=== PATIENT | female | born 1985 | race American Indian/Alaskan Native ===

== ENCOUNTER 2018-10-31 19:12 | Emergency (ER) | payer OTHER ==
[2018-10-31 19:24] VITALS: BMI 22.8
[2018-10-31] MEDS ORDERED: Sodium Chloride 0.9% 1,000 ML IV STA (19:39)
--- NOTE | 2018-10-31 19:44 | ED PDOC ---
Arrival/HPI - General Chief Complaint: Palpitations Time Seen by Provider: 10/31/18 19:26 - History of Present Illness Narrative History of Present Illness (Text): 10/31/18 19:40 33 yo female, presents with vomiting, chills, cough since sun. states on sun had chills mild headache, which resolved, subjective fever. started having vomiting the following day. no abd pain no sore throat, has a cough. no sick contacts saw pmmd in office sent to emergency room for eval. Past Medical History - Infectious Disease Hx of Infectious Diseases: None - Reproductive Currently : Unknown - Psychiatric Hx Substance Use: No - Surgical History Hx Section: Yes (x1) - Anesthesia Hx Anesthesia: Yes Hx Anesthesia Reactions: No Hx Malignant Hyperthermia: No Family/Social History Family/Social History: Unknown Family HX Smoking Status: Never Smoked Hx Alcohol Use: No Hx Substance Use: No Allergies/Home Meds Allergies/Adverse Reactions: Allergies No Known Allergies Allergy (Verified 10/31/18 19:24) Home Medications: Home Meds Medication Instructions Recorded Confirmed RX: No Known Home Med 10/31/18 10/31/18 Review of Systems - Review of Systems Constitutional: Fevers (subjective) Eyes: Normal ENT: Normal Respiratory: Cough Cardiovascular: Normal Gastrointestinal: Nausea, Vomiting Genitourinary Female: Normal Musculoskeletal: Normal Skin: Normal Neurological: Headache Endocrine: Normal Hemo/Lymphatic: Normal Psychiatric: Normal Physical Exam Temperature: Afebrile Blood Pressure: Normal Pulse: Regular Respiratory Rate: Normal Appearance: Positive for: Well-Appearing, Non-Toxic, Comfortable Pain Distress: None Mental Status: Positive for: Alert and Oriented X 3 - Systems Exam Head: Present: Atraumatic, Normocephalic Pupils: Present: PERRL Extroacular Muscles: Present: EOMI Conjunctiva: Present: Normal Mouth: Present: Moist Mucous Membranes Neck: Present: Normal Range of Motion Respiratory/Chest: Present: Clear to Auscultation, Good Air Exchange. No: Respiratory Distress, Accessory Muscle Use Cardiovascular: Present: Regular Rate and Rhythm, Normal S1, S2. No: Murmurs Abdomen: No: Tenderness, Distention, Peritoneal Signs, Rebound, Guarding Back: Present: Normal Inspection Upper Extremity: Present: Normal Inspection. No: Cyanosis, Edema Lower Extremity: Present: Normal Inspection. No: Edema Neurological: Present: GCS=15, CN II-XII Intact, Speech Normal Skin: Present: Warm, Dry, Normal Color. No: Rashes Psychiatric: Present: Alert, Oriented x 3, Normal Insight, Normal Concentration Medical Decision Making ED Course and Treatment: supect viral syndrome gastro dehydration. - labs hydration zofran reassess 10/31/18 19:43 ro dehydrtation viral syndrome influenza. - labs hydration antiemeteric reaccess. ekg nsr [address] t wave changes 10/31/18 22:39 labs neg pt not tachycardic in emergency room. cxr ne gas read by me. asking ro dc. - RAD Interpretation Radiology Orders: 10/31/18 19:40 CHEST PORTABLE [RAD] Stat - Medication Orders Current Medication Orders: Sodium Chloride (Sodium Chloride 0.9%) 1,000 mls @ 1,000 mls/hr IV .Q1H STA Stop: 10/31/18 20:38 Ondansetron HCl (Zofran Inj) 4 mg IVP STAT STA Stop: 10/31/18 19:40 Disposition/Present on Arrival - Present on Arrival Any Indicators Present on Arrival: No History of DVT/PE: No History of Uncontrolled Diabetes: No Urinary Catheter: No History of Decub. Ulcer: No History Surgical Site Infection Following: None - Disposition Have Diagnosis and Disposition been Completed?: Yes Diagnosis: Viral syndrome, Vomiting, Hypokalemia Disposition: HOME/ ROUTINE Disposition Time: 22:00 Condition: STABLE Discharge Instructions (ExitCare): Nausea and Vomiting, Adult, Viral Gastroenteritis, Adult (DC) Additional Instructions: return to any emergency room with worsening symptosm or concerns. Referrals: [facility] [Outside] - Follow up with primary at [facility] [place]Outside] - Follow up with primary Claude Alvarez MD [Staff Provider] - Follow up with primary Forms: [employer] (Togolese)
[2018-10-31 19:57] VITALS: RESP 18; O2SAT 99
[2018-10-31 20:00] LABS: BASO # 0.03 K/mm3 (0.0-2.0); BASO % 0.4 % (0.0-3.0); EOS # 0.1 (0.0-0.7); EOS % 0.9 % (1.5-5.0); HEMOGLOBIN 13.7 g/dL (12.0-16.0); LYMPH # 3.1 (1.2-3.4); LYMPH % 46.5 % (22.0-35.0); MEAN CELL VOLUME 68.9 fl (80.0-105.0); MEAN CORPUSCULAR HEMOGLOBIN 23.1 pg (25.0-35.0); MEAN CORPUSCULAR HGB CONC 33.6 g/dl (31.0-37.0); MEAN PLATELET VOLUME 11.1 fl (7.0-11.0); MONO # 0.8 (0.1-0.6); MONO % 11.1 % (1.0-6.0); RBC 5.92 10^6/uL (3.5-6.1); RED CELL DISTRIBUTION WIDTH 14.2 % (11.5-14.5); WHITE BLOOD COUNT 6.8 10^3/uL (4.5-11.0)
[2018-10-31 20:01] LABS: URINE BILIRUBIN MODERATE (NEGATIVE); URINE BLOOD MODERATE (NEGATIVE); URINE GLUCOSE (UA) NEGATIVE (NEGATIVE); URINE LEUKOCYTE ESTERASE NEGATIVE Leu/uL (NEGATIVE); URINE PROTEIN 30 mg/dL (<30 mg/dL); URINE UROBILINOGEN 0.2 E.U./dL (<1 E.U./dL)
[2018-10-31 20:02] LABS: URINE APPEARANCE SL CLOUDY (CLEAR); URINE COLOR YELLOW (YELLOW)
[2018-10-31 20:04] LABS: HCG,QUALITATIVE URINE NEGATIVE (NEGATIVE)
[2018-10-31 20:06] LABS: URINE AMORPHOUS SEDIMENT FEW /hpf; URINE BACTERIA MANY /hpf; URINE RBC 20 - 25 /hpf (0-2)
[2018-10-31 20:07] LABS: INR 1.21; PARTIAL THROMBOPLASTIN TIME 28.3 Seconds (26.9-38.3); PROTHROMBIN TIME 13.4 SECONDS (9.4-12.5)
[2018-10-31 20:11] LABS: ALB/GLOB RATIO 1.3 (1.1-1.8); ALT/SGPT 27 U/L (7-56); AST/SGOT 38 U/L (14-36); BLOOD UREA NITROGEN 19 mg/dL (7-21); CALCIUM 9.9 mg/dL (8.4-10.5); GFR NON-AFRICAN AMERICAN > 60; LIPASE 91 U/L (23-300)
[2018-10-31] MEDS ORDERED: Potassium Chloride 20 mEq ER Tab PO STA (20:11)
[2018-10-31 20:22] LABS: TROPONIN I < 0.01 ng/mL
[2018-10-31 20:46] VITALS: BP 128/68; PULSE 75
[2018-10-31 22:24] VITALS: TEMP 98.4
--- NOTE | 2018-11-01 09:16 | CARD ---
APPROVED REPORT Date of service: 10/31/2018 EKG Measurement Heart [id number] <Conclusion> Normal sinus rhythm with sinus arrhythmia Normal ECG
--- NOTE | 2018-11-01 10:42 | RAD ---
Date of service: 10/31/2018 HISTORY: cough COMPARISON: No prior. FINDINGS: LUNGS: No active pulmonary disease. PLEURA: No significant pleural effusion identified, no pneumothorax apparent. CARDIOVASCULAR: No aortic atherosclerotic calcification present. Normal cardiac size. No pulmonary vascular congestion. OSSEOUS STRUCTURES: No significant abnormalities. VISUALIZED UPPER ABDOMEN: Normal. OTHER FINDINGS: None. IMPRESSION: No definite radiographic evidence of pneumonia.
== END 2018-10-31 22:21 | disposition home or self-care (01) ==
LOC: ED 19:12
DX: B34.9 Viral infection, unspecified (principal); E87.6 Hypokalemia; R11.10 Vomiting, unspecified
CPT/HCPCS: 71045; 80053; 81001; 81025; 82550; 83615; 83690; 83735; 84484; 84703; 85025; 85610; 85730; 87804; 93005; 96361; 96374; 99284; J2405; J7030